=== PATIENT | female | born 1995 | race Caucasian/White ===

== ENCOUNTER 2018-06-02 22:59 | Emergency (ER) | payer OTHER ==
[~2018-06-02] VITALS: Ht 149.9 cm; Wt 79.4 kg
[2018-06-02 23:14] VITALS: Ht 149.9 cm; Wt 79.4 kg
[2018-06-03 02:16] VITALS: BP 125/68
== END 2018-06-03 02:16 | disposition home or self-care (01) ==
LOC: ED 22:59
DX: S43.402A Unspecified sprain of left shoulder joint, initial encounter (principal); W19.XXXA Unspecified fall, initial encounter; Y93.89 Activity, other specified; Y92.89 Other specified places as the place of occurrence of the external cause; Y99.8 Other external cause status
CPT/HCPCS: J1885